=== PATIENT | female | born 1945 | race Caucasian/White ===

== ENCOUNTER 2017-05-03 13:30 | Observation (INO) ==
--- NOTE | 2017-05-03 13:51 | Emergency Department Note ---
Disposition Clinical Impression: Chest pain Qualifiers: Chest pain type: unspecified Qualified Code(s): R07.9 - Chest pain, unspecified Disposition: Admitted As Inpatient Condition: Fair Forms: ED Satisfaction Letter Time of Disposition: 15:40 General Adult HPI - General Chief complaint: ED Chest Pain Stated complaint: chest pain Time Seen by Provider: 05/03/17 13:35 Source: patient Mode of arrival: ambulatory Limitations: no limitations Nursing Notes Reviewed: Yes Vital Signs Reviewed: Yes - History of Present Illness HPI Narrative: Patient is a 71-year-old female with a past medical history of MN with stent in 2007, and heart catheterization in 2014 that was "normal", HTN, high cholesterol presenting to the emergency Department by private vehicle for the complaint of chest pain that started yesterday evening. She describes the chest pain as substernal, aching, radiation into the left arm and neck, and no exacerbating or alleviating factors. Patient states that the pain has been intermittent since yesterday evening and is currently a 8/10 on pain scale. She states the pain feels similar to her prior heart attack. Denies any fevers , chills, nausea, vomiting, cough, shortness of breath, abdominal pain or lower extremity swelling. No history of PE/DVT. No estrogen use, recent surgeries or recent travels. Pain Scale: 2 - Related Data Home Medications Medication Instructions Recorded Confirmed Aspirin 81 mg PO DAILY 01/19/16 05/03/17 Atorvastatin [Lipitor] 40 mg PO HS 01/19/16 05/03/17 Metoprolol XL (24 HR) Succ [Toprol 50 mg PO HS 01/19/16 05/03/17 Xl] Multivitamin [One Daily 1 each PO DAILY 01/19/16 05/03/17 Multivitamin] Gabapentin [Neurontin] 600 mg PO TID 05/03/17 05/03/17 Pantoprazole Sodium [Protonix] 40 mg PO DAILY PRN 05/03/17 05/03/17 Allergies Allergy/AdvReac Type Severity Reaction Status Date / Time prednisone Allergy Chest Pain Verified 01/19/16 07:19 All systems ED: reviewed and negative except as stated. Review of Systems: As Per HPI Past Medical History - Past Medical History Attestation: Yes The following information was validated with the patient. Medical history: Reports: hypertension Psychiatric history: Reports: no psych history - Social History Smoking Status: Current every day smoker Smokeless Tobacco Status: No Alcohol use: Reports: none Drug use: Reports: none Physical Exam CONSTITUTIONAL: Well-appearing; well-nourished; A&O X 3, in no apparent distress. Patient blood pressure is elevated at 170/100. HEAD: Normocephalic; atraumatic EYES: PERRL, no scleral icterus NOSE: The nose is normal in appearance without rhinorrhea NECK: No JVD or distended neck veins RESP: Normal chest excursion with respiration; breath sounds clear and equal bilaterally; no wheezes, rhonchi, or rales CARD: Regular rhythm, without murmurs, rub or gallop ABD: Non-distended; non-tender, soft, without rigidity, rebound or guarding,no pulsatile mass CHEST: No pain with palpation SKIN: Normal for age and race; warm and dry without diaphoresis ; no apparent lesions EXTREMITIES: Pulses are 2 plus and equal times 4 extremities, no peripheral edema or calf muscle pain - General Limitations: no limitations General appearance: alert, in no apparent distress Course Course Narrative: Patient will be worked up for her chest pain that sounds cardiac in nature. Due to her past medical history and risk factors patient will most likely be admitted for her chest pain. We will try a nitroglycerin trial to see if that improves her pain also to help with her elevated blood pressure. She will also receive a full aspirin. - Reevaluation(s) Reevaluation #1: Patient states she is a symptomatically at this time. She did receive 1 dose of nitroglycerin with no effect. She received a full dose of aspirin. Discussed with the patient that her lab work at this time is unremarkable and her EKG was normal. Discussed plan to admit her to the hospital for chest pain and further cardiac workup. Patient agrees with the plan at this time. Time: 15:40 Vital Signs Temperature 99.7 F H 05/03/17 13:38 Pulse Rate 80 05/03/17 13:38 Respiratory Rate 16 05/03/17 13:38 Blood Pressure 183/92 05/03/17 13:38 O2 Sat by Pulse Oximetry 96 05/03/17 13:38 Temperature 99.7 F H 05/03/17 13:38 Pulse Rate 71 05/03/17 15:26 Respiratory Rate 16 05/03/17 15:26 Blood Pressure 144/84 05/03/17 15:26 O2 Sat by Pulse Oximetry 92 05/03/17 15:26 Oxygen Delivery Oxygen Delivery Room Air Medical Decision Making - Medical Records Medical records reviewed: Yes I reviewed the patient's medical records. - Lab Data Lab results reviewed: Yes I reviewed the patient's lab results. Result diagrams: 05/03/17 13:58 05/03/17 13:58 Lab Results 05/03/17 05/03/17 Range/Units 13:58 13:58 WBC 9.8 (4.3-11.1) K/mcL RBC 5.13 H (3.82-4.97) M/mcL Hgb 15.7 H (11.5-15.4) g/dL Hct 47.7 H (35.3-44.9) % MCV 93.0 (83.0-100.0) fL MCH 30.6 (28.0-33.3) pg MCHC 32.9 (31.6-35.5) g/dL RDW 14.1 (11.5-14.5) % Plt Count 304 (140-400) K/mcL MPV 9.6 (9.4-12.4) fL Immature Gran % 0.3 (0-4) % Seg Neutrophils % 45.9 % Lymphocytes % 41.7 % Monocytes % 8.7 % Eosinophils % 2.5 % Basophils % 0.9 % Neutrophils # 4.5 (1.6-8.9) K/mcL Lymphocytes # 4.1 (0.6-4.6) K/mcL Monocytes # 0.9 (0.0-1.3) K/mcL Eosinophils # 0.3 (0.0-0.6) K/mcL Basophils # 0.1 (0.0-0.2) K/mcL Sodium 139 (136-145) mEq/L Potassium 4.0 (3.5-5.1) mEq/L Chloride 107 (98-107) mEq/L Carbon Dioxide 23 (23-29) mEq/L BUN 11 (8-23) mg/dL Creatinine 0.69 (0.60-1.20) mg/dL Est GFR ( Amer) > 60 (> 60) Est GFR (Non-Af Amer) > 60 (> 60) BUN/Creatinine Ratio 16 (6-26) Glucose 118 H (70-105) mg/dL Calculated Osmolality 288 (280-300) Calcium 9.5 (8.6-10.3) mg/dL Troponin I < 0.03 (< 0.04) ng/mL - Radiology Data Radiology results reviewed: Yes I reviewed the patient's radiology results. Chest X-Ray 05/03/17 13:47 IMPRESSION: No acute process. D/ / Obed Graham MD / Obed Graham MD Interpreting Provider: Obed Graham MD - EKG Data EKG #1 EKG attestation: Yes I reviewed and interpreted this EKG. EKG results narrative: EKG done at 13:39 shows sinus rhythm at a rate of 78 bpm. Normal axis. NM is 158, QRS is 85, QT is 385 and QTc is 4 and 16 is within normal limits. No signs of ST elevation, ST depression, or Q waves present. No ischemic changes. Unchanged from EKG done on 01/14/2016.
[2017-05-03 14:30] LABS: Basophils # 0.1 K/mcL (0.0-0.2); Basophils % 0.9 %; Eosinophils # 0.3 K/mcL (0.0-0.6); Eosinophils % 2.5 %; Hematocrit 47.7 % (35.3-44.9); Hemoglobin 15.7 g/dL (11.5-15.4); Immature Granulocytes % 0.3 % (0-4); Lymphocytes # 4.1 K/mcL (0.6-4.6); Lymphocytes % 41.7 %; Mean Corpuscular HGB Conc 32.9 g/dL (31.6-35.5); Mean Corpuscular Hemoglobin 30.6 pg (28.0-33.3); Mean Platelet Volume 9.6 fL (9.4-12.4); Monocytes # 0.9 K/mcL (0.0-1.3); Monocytes % 8.7 %; Neutrophils # 4.5 K/mcL (1.6-8.9); Platelet Count 304 K/mcL (140-400); Red Blood Count 5.13 M/mcL (3.82-4.97); Red Cell Distribution Width 14.1 % (11.5-14.5); Segmented Neutrophils % 45.9 %
[2017-05-03 14:41] LABS: Troponin I < 0.03 ng/mL (< 0.04)
[2017-05-03] MEDS: Nitroglycerin 0.4 MG TAB.SUBL SL ONE ×2 (14:52→15:20)
[2017-05-03 14:53] LABS: BUN/Creatinine Ratio 16 (6-26); Blood Urea Nitrogen 11 mg/dL (8-23); Calcium 9.5 mg/dL (8.6-10.3); Carbon Dioxide 23 mEq/L (23-29); Chloride 107 mEq/L (98-107); Glucose 118 mg/dL (70-105); Osmolality,Calculated 288 (280-300); Sodium 139 mEq/L (136-145); eGFR For African Americans > 60 (> 60); eGFR For Non-African Americans > 60 (> 60)
[2017-05-03] MEDS ORDERED: Aspirin 81 MG TAB.CHEW PO ONE (15:11)
[2017-05-03] MEDS ORDERED: Aspirin 81 MG TAB.CHEW ONE (15:13)
--- NOTE | 2017-05-03 15:16 | Emergency Department Note ---
START Narrative - START START: I examined this patient and my medical decision-making was reviewed with the Resident Physician. I agree with the documented findings, disposition and treatment plan as described except to the extent set forth below. 71 year old female wiht history of cardiac stent is having recurring chest pain that is progressively getting worse over the past 3 days which is simliar to her symptoms durig her last episode of ACS. PAtients cardiorpulmonary wokr is otherwise negative but has an elevated heart score that is concerning for ACS. We will admit ot medicine. PAtient ASA//nitro. SHe was relunctant at first although after much convrsation we have convinced her to stay. Admit to medicine.
--- NOTE | 2017-05-03 16:39 | Internal Med History&Physical ---
Date of Encounter: 05/03/17 Time of Encounter: 16:37 Assessment and Plan (1) HTN (hypertension) Current visit: Yes Status: Chronic Chronic now quite well controlled we will adjust home medication Qualifiers: Hypertension type: essential hypertension Qualified Code(s): I10 - Essential (primary) hypertension (2) Hyperlipidemia Current visit: Yes Status: Chronic Chronic recheck in a.m. Qualifiers: Hyperlipidemia type: pure hypercholesterolemia Qualified Code(s): E78.00 - Pure hypercholesterolemia, unspecified; E78.0 - Pure hypercholesterolemia (3) Smoking Current visit: Yes Status: Chronic (4) Chest pain Current visit: Yes Status: Acute Chest pain recurrent since yesterday EKG is unremarkable troponin so far is negative will trend troponin and scheduled for nuclear stress test and echo tomorrow Qualifiers: Chest pain type: precordial pain Qualified Code(s): R07.2 - Precordial pain Internal Medicine - H&P: HPI Chief complaint: chest pain Admitted From: Emergency Dept Plans for Post Hospital Care: Home History of present illness: Ms. Bello is a 71 year old female Patient with history of CAD had a stent placed 2007 then cardiac catheterization and 2014 which was normal no intervention was done patient also history of hypertension, high cholesterol, smokes 1 pack a day patient presented emergency room with recurrent chest pain started yesterday chest pain describes as pressure and tightness going up to her left arm and neck recurrent says similar to prior CA chest pain given sublingual nitroglycerin with no significant difference EKG is unremarkable troponin so far is negative patient been admitted for further evaluation she said the last time she had a stress test has been several years. Past Med Surg Social Fam HX - Past Medical History Medical history: coronary artery disease, hyperlipidemia, hypertension, myocardial infarction Psychiatric history: no psych history - Social History Smoking Status: Current every day smoker Smokeless Tobacco Status: No Alcohol use: none Drug use: none Internal Medicine - H&P: Meds Aspirin 81 mg PO DAILY 01/19/16 [History] Atorvastatin [Lipitor] 40 mg PO HS 01/19/16 [History] Metoprolol XL (24 HR) Succ [Toprol Xl] 50 mg PO HS 01/19/16 [History] Multivitamin [One Daily Multivitamin] 1 each PO DAILY 01/19/16 [History] Gabapentin [Neurontin] 600 mg PO TID 05/03/17 [History] Pantoprazole Sodium [Protonix] 40 mg PO DAILY PRN 05/03/17 [History] 3 Allergy/AdvReac Type Severity Reaction Status Date / Time prednisone Allergy Chest Pain Verified 01/19/16 07:19 All Systems PM: A 10-system review of systems was performed and is negative for pertinent findings except as documented above in the HPI. - Constitutional Constitutional: no chills, no fever(s), no night sweats - EENT Eyes: no change in vision, no discharge, no pain, no photophobia Ears: no ear discharge, no ear pain, no tinnitus Nose, mouth and throat: no dysphagia, no nasal discharge, no neck pain, no sore throat - Cardiovascular Cardiovascular ROS IM: chest pain, dyspnea on exertion - Respiratory Respiratory: dyspnea on exertion - Gastrointestinal Gastrointestinal: no abdominal pain, no diarrhea, no hematemesis, no hematochezia, no melena, no nausea, no vomiting - Genitourinary Genitourinary: no change in urinary stream, no dysuria, no flank pain, no hematuria - Musculoskeletal Musculoskeletal ROS IM: no numbness, no tingling - Constitutional Vitals: Temp Pulse Resp BP Pulse Ox 99.7 F H 71 16 144/84 92 05/03/17 13:38 05/03/17 15:26 05/03/17 15:26 05/03/17 15:26 05/03/17 15:26 - Head Head exam: Present: atraumatic, normocephalic - Eye Eye exam: Present: PERRL, conjuntiva pink, sclera anicteric Pupils: Present: PERRL - Neck Neck exam general surgery: Present: supple, trachea midline. Absent: lymphadenopathy - Respiratory Respiratory exam: Present: CTAB. Absent: accessory muscle use, rales, rhonchi, wheezes - Cardiovascular Cardiovascular exam: Present: RRR, +S1, +S2. Absent: diastolic murmur, gallop, rubs, systolic murmur - GI/Abdominal GI/Abdominal exam: Present: normal bowel sounds, soft, no peritoneal signs. Absent: distended, tenderness - Extremities Exam Extremities exam: Present: warm, radial pulses palpable and symmetrical. Absent : calf tenderness, cyanotic, pedal edema - Neurological Exam Neurological exam: Present: CN II-XII intact, oriented X3, no focal deficits. Absent: pronater drift, facial droop, speech deficit - Skin Skin exam: Present: dry, intact Internal Med - H&P Results - Labs CBC & Chem 7: 05/03/17 13:58 05/03/17 13:58
[2017-05-03] MEDS ORDERED: Naloxone 0.4 MG/ML INJ IVP PRN (16:43)
[2017-05-03] MEDS ORDERED: 0.9 % Sodium Chloride 1,000 ML IVC SCH (16:45)
[2017-05-03] MEDS: amLODIPine 5 MG TABLET PO SCH (17:16)
[2017-05-03] MEDS: Gabapentin 300 MG CAPSULE PO SCH (20:12)
[2017-05-03] MEDS ORDERED: Metoprolol XL (24 HR) Succ 50 MG TAB.ER.24H PO SCH (21:00)
[2017-05-03] MEDS ORDERED: Acetaminophen 325 MG TABLET PO PRN (22:20)
[2017-05-04 03:20] LABS: Hematocrit 43.1 % (35.3-44.9); Hemoglobin 14.4 g/dL (11.5-15.4); Mean Corpuscular HGB Conc 33.4 g/dL (31.6-35.5); Mean Corpuscular Hemoglobin 30.6 pg (28.0-33.3); Mean Corpuscular Volume 91.7 fL (83.0-100.0); Mean Platelet Volume 9.6 fL (9.4-12.4); Platelet Count 271 K/mcL (140-400); Red Cell Distribution Width 13.9 % (11.5-14.5)
[2017-05-04 03:29] LABS: Alanine Aminotransferase 21 Units/L (7-52); Albumin 3.7 g/dL (3.5-5.7); Albumin/Globulin Ratio 1.2 (1.1-2.2); Alkaline Phosphatase 81 Units/L (34-104); Aspartate Amino Transferase 19 Units/L (13-39); BUN/Creatinine Ratio 19 (6-26); Bilirubin,Total 0.7 mg/dL (0.3-1.0); Blood Urea Nitrogen 13 mg/dL (8-23); Calcium 8.7 mg/dL (8.6-10.3); Carbon Dioxide 23 mEq/L (23-29); Chloride 111 mEq/L (98-107); Chol/HDL Ratio 5.1 (0-4.9); Cholesterol 202 mg/dL (< 200); Globulin 3.2 g/dL (2.4-3.5); Glucose 103 mg/dL (70-105); HDL Cholesterol 40 mg/dL (40-59); LDL Cholesterol,Calculated 146 mg/dL (0-99); Magnesium 1.7 mg/dL (1.6-2.6); Osmolality,Calculated 288 (280-300); Potassium 3.7 mEq/L (3.5-5.1); Sodium 139 mEq/L (136-145); Total Protein 6.9 g/dL (6.4-8.9); Triglycerides 81 mg/dL (< 150); eGFR For African Americans > 60 (> 60); eGFR For Non-African Americans > 60 (> 60)
[2017-05-04] MEDS ORDERED: Regadenoson 0.4 MG/5 ML SYRINGE IVP ONE (06:11)
[2017-05-04] MEDS ORDERED: Aspirin 81 MG TAB.CHEW PO SCH (09:00)
[2017-05-04] MEDS ORDERED: Multivit/Ca/Min/Fe/FA 1 TAB TABLET PO SCH (09:00)
[2017-05-04 11:32] VITALS: BP 159/70
[2017-05-04] MEDS: Gabapentin 300 MG CAPSULE PO SCH (11:48)
[2017-05-04] MEDS: amLODIPine 5 MG TABLET PO SCH (11:48)
--- NOTE | 2017-05-04 13:07 | Discharge Summary ---
- NOTES TO OUTPATIENT PROVIDER Notes to Outpatient Provider: outpatient cardiology within 2 to 3 weeks Orders not resulted at time of discharge: Pending orders 05/03/17 16:48 NM aidan perf SPECT multi [NM] Routine Date of Encounter: 05/04/17 Time of Encounter: 13:05 - Discharge Diagnosis (1) Chest pain Priority: Primary Status: Acute Qualifiers: Chest pain type: precordial pain Qualified Code(s): R07.2 - Precordial pain (2) HTN (hypertension) Priority: Primary Status: Chronic Qualifiers: Hypertension type: essential hypertension Qualified Code(s): I10 - Essential (primary) hypertension (3) Hyperlipidemia Priority: Primary Status: Chronic Qualifiers: Hyperlipidemia type: pure hypercholesterolemia Qualified Code(s): E78.00 - Pure hypercholesterolemia, unspecified; E78.0 - Pure hypercholesterolemia (4) Smoking Priority: Primary Status: Chronic (5) Lumbar radiculopathy Priority: Primary Status: Chronic (6) Lumbar stenosis Priority: Primary Status: Chronic Qualifiers: Neurogenic claudication status: unspecified Qualified Code(s): M48.061 - Spinal stenosis, lumbar region without neurogenic claudication Hospital course: Ms. Bello is a 71 year old female who presented to the emergency room with recurrent chest pain of one-day duration that she described as a pressure and tightness going into her left arm and neck. Said it was similar to a prior IN. She was given sublingual nitroglycerin with no significant difference. EKG was unremarkable and troponins were negative. She was admitted and had a stress test. She also has comorbidities of hypertension hyperlipidemia and tobacco abuse. Discussed tobacco cessation and she said she wants to quit but that she really wanted quit. Discussed the findings of the stress test and she has not followed up with a coffee maker servicer since her previous workup several years ago. She was encouraged to follow-up with cardiology and has agreed to see Micaela an appointment has been arranged. The cardiogram was reviewed with LVEF of 60% normal LV chamber size wall thickness and function. Mild left ventricular diastolic dysfunction. Normal right ventricular structure and function. No significant valvular dysfunction. Stress test was negative for ischemia at level of heart rate achieved. Gated EF equals 74%. Small size moderate intensity fixed apical anterior apical lateral and apex defect noted a small prior infarct could not be excluded. Discussed with cardiology and they felt this was contributed to her previous stent and IN. Perfusion imaging was negative for ischemia. Did discuss this with the patient and she agreed to follow-up as directed above. Discharge discussed with: patient, family, nurse - Time Spent with Patient Total time spent providing and/or coordinating discharge services: Less than 30 minutes - Discharge Medications Prescriptions: amLODIPine [Norvasc] 10 mg PO DAILY #30 tablet Home Medications: Aspirin 81 mg PO DAILY 01/19/16 [History] Atorvastatin [Lipitor] 40 mg PO HS 01/19/16 [History] Metoprolol XL (24 HR) Succ [Toprol Xl] 50 mg PO HS 01/19/16 [History] Multivitamin [One Daily Multivitamin] 1 each PO DAILY 01/19/16 [History] Gabapentin [Neurontin] 600 mg PO TID 05/03/17 [History] Pantoprazole Sodium [Protonix] 40 mg PO DAILY PRN 05/03/17 [History] amLODIPine [Norvasc] 10 mg PO DAILY #30 tablet 05/04/17 [Rx] Allergies/Adverse Reactions: 3 Allergy/AdvReac Type Severity Reaction Status Date / Time prednisone Allergy Chest Pain Verified 01/19/16 07:19 Date of admission: 05/03/17 16:34 Primary care physician: Allison Greenfield MD Discharging clinician: Noa Hurtado Anticipated date of discharge: 05/04/17 - Constitutional Vitals: Temp Pulse Resp BP Pulse Ox 98.0 F 70 18 159/70 97 05/04/17 11:30 05/04/17 11:30 05/04/17 11:30 05/04/17 11:30 05/04/17 11:30 General appearance: Present: cooperative, A&O X 3, pleasant, answers questions appropriately - Head Head exam: Present: atraumatic, normocephalic - Eye Eye exam: Present: PERRL, conjuntiva pink, sclera anicteric Pupils: Present: PERRL - Neck Neck exam general surgery: Present: supple, trachea midline. Absent: lymphadenopathy - Respiratory Respiratory exam: Present: CTAB. Absent: accessory muscle use, rales, rhonchi, wheezes - Cardiovascular Cardiovascular exam: Present: RRR, +S1, +S2. Absent: diastolic murmur, gallop, rubs, systolic murmur - GI/Abdominal GI/Abdominal exam: Present: normal bowel sounds, soft, no peritoneal signs. Absent: distended, tenderness - Extremities Exam Extremities exam: Present: warm, radial pulses palpable and symmetrical. Absent : calf tenderness, cyanotic, pedal edema - Neurological Exam Neurological exam: Present: CN II-XII intact, oriented X3, no focal deficits. Absent: pronater drift, facial droop, speech deficit - Skin Skin exam: Present: dry, intact, normal color, warm - Patient Status Disposition: Home, Self-Care Condition: Fair Overall status at discharge: patient is back to baseline - Discharge Instructions Instructions: Chest Pain (DC), How to Stop Smoking (DC), Chronic Hypertension ( DC) Follow Up With: Allison Greenfield MD [Primary Care Provider] - 05/12/17 1:00 pm - Diet and Activity Activity: resume usual activities as tolerated Diet: low fat, low cholesterol, low salt diet
--- NOTE | 2017-05-04 19:47 | Electrocardiograph Report ---
[place] [id number] Test Date: 2017-05-03 Pat Name: Arielle Bello Department: 102 Room: 3B34 Gender: F Patient Access Registrar: : 1945 Requested By: Hermes Hahn Order Number: [id number] Reading MD: Lele Goldberg MD Measurements Intervals [place] Rate: 78 P: 60 AK: 158 QRS: 10 QRSD: 85 T: 56 QT: 383 QTc: 416 Interpretive Statements SINUS RHYTHM Electronically Signed On 05-04-2017 19:46:35 EDT by Lele Goldberg MD
== END 2017-05-04 14:34 | disposition home or self-care (01) ==
LOC: 3BNU 13:30 → EMEROO 13:30 → 3BNU 16:53
PROVIDERS: ADMIT Internal Medicine Cardiovascular Disease; ATTEND Registered Nurse